=== PATIENT | female | born 1945 | race Caucasian/White ===

== ENCOUNTER → 2016-04-14 | Outpatient (CLI) | payer MEDICARE, BC | LOC: OD 14:39 | PROVIDERS: ATTEND Internal Medicine | DX: M16.9 Osteoarthritis of hip, unspecified (principal) | CPT/HCPCS: 73522 ==

== ENCOUNTER 2016-12-02 13:28 | Observation (INO) | payer MEDICARE, BC ==
[2016-12-02] MEDS ORDERED: INFLUENZA ADLT QUAD (36MOS+) 2017-18 VAC 0.5 ML SYR IM PRN (15:15)
[2016-12-02 15:50] LABS: HEMATOCRIT 43.2 % (36.0-47.0); HGB HCT DIFFERENCE 1.8; MEAN CORPUSCULAR HEMOGLOBIN 31.2 pg (27.0-33.4); MEAN CORPUSCULAR HGB CONC 34.8 g/dL (32.0-36.0); MEAN CORPUSCULAR VOLUME 90 fl (80-97); RED BLOOD COUNT 4.81 10^6/uL (3.72-5.28); WHITE BLOOD COUNT 6.1 10^3/uL (4.0-10.5)
[2016-12-02 15:54] LABS: APPEARANCE,URINE CLEAR; BILIRUBIN,URINE NEGATIVE (NEGATIVE); GLUCOSE, URINE NEGATIVE (NEGATIVE); KETONES,URINE NEGATIVE (NEGATIVE); LEUKOCYTE ESTERASE,URINE TRACE (NEGATIVE); NITRITE,URINE NEGATIVE (NEGATIVE); PROTEIN,URINE NEGATIVE (NEGATIVE); URINE SPECIFIC GRAVITY 1.003; UROBILINOGEN,URINE NEGATIVE mg/dL (<2.0)
[2016-12-02 16:08] LABS: ALANINE AMINOTRANSFERASE 35 U/L (9-52); ALBUMIN 4.6 g/dL (3.5-5.0); ALKALINE PHOSPHATASE 86 U/L (38-126); ANION GAP 13 (5-19); ASPARTATE AMINO TRANSFERASE 21 U/L (14-36); BILIRUBIN,DIRECT 0.4 mg/dL (0.0-0.4); BILIRUBIN,TOTAL 0.8 mg/dL (0.2-1.3); BLOOD UREA NITROGEN 16 mg/dL (7-20); CALCIUM 9.7 mg/dL (8.4-10.2); CARBON DIOXIDE 30 mmol/L (22-30); CHLORIDE 97 mmol/L (98-107); CREATINE KINASE 56 U/L (30-135); CREATININE RESULT 0.81 mg/dL (0.52-1.25); GLUCOSE 80 mg/dL (75-110); POTASSIUM 3.5 mmol/L (3.6-5.0); SODIUM 140.1 mmol/L (137-145); TOTAL PROTEIN 7.7 g/dL (6.3-8.2)
--- NOTE | 2016-12-02 16:17 | RADIOLOGY REPORT (SQ) ---
EXAM DESCRIPTION: CHEST SINGLE VIEW COMPLETED DATE/TIME: 12/02/2016 3:57 pm REASON FOR STUDY: chest pressure COMPARISON: September 2015 EXAM PARAMETERS: NUMBER OF VIEWS: One view. TECHNIQUE: Single frontal radiographic view of the chest acquired. RADIATION DOSE: NA LIMITATIONS: None. FINDINGS: LUNGS AND PLEURA: The previously described chronic biapical pleural thickening left greate r than right appear stable. No acute consolidations or pleural effusions are identified. No pneumot horax is seen. MEDIASTINUM AND HILAR STRUCTURES: No masses. Contour normal. HEART AND VASCULAR STRUCTURES: Heart normal in size. Normal vasculature. BONES: No acute findings. HARDWARE: None in the chest. OTHER: No other significant finding. IMPRESSION: No significant interval change. No acute findings. Other findings as noted above TECHNICAL DOCUMENTATION: JOB ID: [id number]
[2016-12-02 16:19] LABS: CREATINE KINASE MB 0.51 ng/mL (<4.55)
[2016-12-02 16:25] LABS: TROPONIN I < 0.012 ng/mL
--- NOTE | 2016-12-02 16:34 | EKG REPORT ---
SEVERITY:- NORMAL ECG - SINUS RHYTHM : Confirmed by: Elan Wynn 02-Dec-2016 16:34:08
[2016-12-02] MEDS ORDERED: ASPIRIN 81 MG TABLET, CHEWABLE PO ONE (17:15)
[2016-12-02] MEDS ORDERED: HYDROCHLOROTHIAZIDE 25 MG TABLET PO ONE (17:15)
[2016-12-02] MEDS ORDERED: DILTIAZEM HCL 120 MG CAP.SR.24H PO ONE (17:30)
--- NOTE | 2016-12-02 19:17 | XCELERA REPORT ---
[address] [address] Transthoracic Echocardiogram Report Name: ARPIT ROMERO Age: 71 yrs Gender: Female : 1945 Patient Status: Inpatient Patient Location: [address] [place] [address] Study Date: 12/02/2016 04:04 PM Height: 64 in Weight: 167 lb BSA: 1.8 m2 Procedure: A complete two-dimensional transthoracic echocardiogram was performed (2D, M-mode, spectral and color flow Doppler). The study was technically difficult with many images being suboptimal in quality. Reason For Study: chest pressure Ordering Physician: FAVIAN SILVER Performed By: Viri Glynn Interpretation Summary Left ventricular systolic function is low normal. Doppler measurements suggest pseudonormalized left ventricular relaxation, which is associated with grade II/IV or mild to moderate diastolic dysfunction There is borderline concentric left ventricular hypertrophy. The left ventricle is grossly normal size. Wall motion cannot be accurately commented on, but no definite regional wall motion abnormalities noted. The right ventricular systolic function is normal. The left atrial size is normal. The right atrium is normal in size There is a trace to mild amount of mitral regurgitation There is no mitral valve stenosis. There is a trace amount of aortic regurgitation There is no aortic valve stenosis There is a trace or physiologic amount of tricuspid regurgitation Tricuspid regurgitation jet envelope not well defined to measure RV systolic pressure accurately. The aortic root is not well visualized but is probably normal size. The inferior vena cava appeared normal and decreased > 50% with respiration (RAP 5-10 mmHg) There is no pericardial effusion. MMode/2D Measurements & Calculations RVDd: 2.6 cm LVIDd: 5.0 cm FS: 24.5 % Ao root diam: 3.0 cm IVSd: 0.56 cm LVIDs: 3.8 cm EDV(Teich): 119.6 ml LVPWd: 0.68 cm ESV(Teich): 61.8 ml Ao root area: 6.9 cm2 EF(Teich): 48.4 % LA dimension: 2.7 cm Doppler Measurements & Calculations MV E max marely: MV P1/2t max marely: Ao V2 max: LV V1 max P.5 cm/sec 73.1 cm/sec 131.1 cm/sec 5.7 mmHg MV A max marely: MV P1/2t: 55.8 msec Ao max PG: LV V1 max: 106.1 cm/sec 6.9 mmHg 119.4 cm/sec MV E/A: 0.69 MVA(P1/2t): 3.9 cm2 MV dec slope: 383.5 cm/sec2 PA V2 max: PI end-d marely: 78.0 cm/sec 100.4 cm/sec PA max P.4 mmHg Left Ventricle The left ventricle is grossly normal size. There is borderline concentric left ventricular hypertrophy. Left ventricular systolic function is low normal. Doppler measurements suggest pseudonormalized left ventricular relaxation, which is associated with grade II/IV or mild to moderate diastolic dysfunction. Wall motion cannot be accurately commented on, but no definite regional wall motion abnormalities noted. Right Ventricle The right ventricle is grossly normal size. There is normal right ventricular wall thickness. The right ventricular systolic function is normal. Atria The right atrium is normal in size. The left atrial size is normal. Interarterial septum not well visualized and not well dopplered. Cannot comment on ASD/PFO presence. Mitral Valve The mitral valve is grossly normal. There is no mitral valve stenosis. There is a trace to mild amount of mitral regurgitation. Aortic Valve The aortic valve is grossly normal. There is no aortic valve stenosis. There is a trace amount of aortic regurgitation. Tricuspid Valve The tricuspid valve is not well visualized, but is grossly normal. There is no tricuspid stenosis. There is a trace or physiologic amount of tricuspid regurgitation. Tricuspid regurgitation jet envelope not well defined to measure RV systolic pressure accurately. Pulmonic Valve The pulmonic valve is not well visualized. Great Vessels The aortic root is not well visualized but is probably normal size. The inferior vena cava appeared normal and decreased > 50% with respiration (RAP 5-10 mmHg). Effusions There is no pericardial effusion. : FAVIAN SILVER > Elan Wynn
[2016-12-03 00:11] LABS: CREATINE KINASE MB 0.43 ng/mL (<4.55)
[2016-12-03 00:21] LABS: TROPONIN I < 0.012 ng/mL
[2016-12-03] MEDS ORDERED: HYDROCHLOROTHIAZIDE 25 MG TABLET PO SCH (08:00)
[2016-12-03] MEDS ORDERED: ASPIRIN 81 MG TABLET, CHEWABLE PO SCH ×2 (08:00→10:00)
[2016-12-03] MEDS ORDERED: DILTIAZEM HCL 120 MG CAP.SR.24H PO SCH (08:00)
[2016-12-03 08:38] LABS: TROPONIN I < 0.012 ng/mL
[2016-12-03] MEDS ORDERED: POTASSIUM CHLORIDE 10 MEQ TABLET.SA PO ONE (14:00)
[2016-12-03] MEDS ORDERED: NORMAL SALINE 1000 ML 1,000 ML IV PRN (14:59)
--- NOTE | 2016-12-03 15:45 | RADIOLOGY REPORT (SQ) ---
EXAM DESCRIPTION: HIP RIGHT AP/LATERAL COMPLETED DATE/TIME: 12/03/2016 3:38 pm REASON FOR STUDY: pain if rt hip R07.89 OTHER CHEST PAIN R10.84 GENERALIZED ABDOMINAL PAIN COMPARISON: Pelvis and hip films 04/14/2016 CT abdomen pelvis 08/22/2015 NUMBER OF VIEWS: Two views. TECHNIQUE: AP pelvis and additional frog-leg view of the right hip. LIMITATIONS: None. FINDINGS: MINERALIZATION: Normal. RIGHT HIP: No fracture or dislocation. No joint space narrowing or bony spurring. No worrisome bone lesions. LEFT HIP: No fracture or dislocation. No joint space narrowing or bony spurring. No worrisome bone lesions. PUBIS AND ISCHIUM: No fracture. PELVIS: No fracture. SACRUM: No fracture or dislocation. No worrisome bone lesions. LOWER LUMBAR SPINE: No fracture or dislocation. No worrisome bone lesions. No significant disc disea se. SOFT TISSUES: Surgical clips along the right colon OTHER: No other significant finding. IMPRESSION: NEGATIVE STUDY OF THE RIGHT HIP. NO RADIOGRAPHIC EVIDENCE OF ACUTE INJURY. TECHNICAL DOCUMENTATION: JOB ID: [id number]- All Rights Reserved
--- NOTE | 2016-12-03 16:15 | RADIOLOGY REPORT (SQ) ---
EXAM DESCRIPTION: CT ABD/PELVIS WITH IV ONLY COMPLETED DATE/TIME: 12/03/2016 3:53 pm REASON FOR STUDY: abdominal pain R07.89 OTHER CHEST PAIN R10.84 GENERALIZED ABDOMINAL PAIN COMPARISON: CT angio chest 05/20/2012 CT abdomen pelvis 07/07/2013, 08/22/2015 TECHNIQUE: CT scan of the abdomen and pelvis performed using helical scanning technique with dynamic intravenous contrast injection. No oral contrast. Images reviewed with lung, soft tissue, and bone windows. Reconstructed coronal and sagittal MPR images reviewed. Delayed images for evaluation of the urinary system also acquired. All images stored on PACS. All CT scanners at this facility use dose modulation, iterative reconstruction, and/or weight based d osing when appropriate to reduce radiation dose to as low as reasonably achievable (ALARA). [facility]: Dose Right [facility]: CareDose [facility]: Dose Right [facility]: Teradose 4D [facility]: [employer] CONTRAST TYPE AND DOSE: contrast/concentration: Isovue 370.00 mg/ml; Total Contrast Delivered: 82.0 ml; Total Saline Delivered: 54.5 ml RENAL FUNCTION: Creatinine 0.81 RADIATION DOSE: Up-to-date CT equipment and radiation dose reduction techniques were employed. CTDIv ol: 10.4 - 11.7 mGy. DLP: 1090 mGy-cm.. LIMITATIONS: None. FINDINGS: LOWER CHEST: No significant findings. No nodules or infiltrates. LIVER: Normal size. No masses. No dilated ducts. Small benign hepatic cysts are present, 5 mm diameter in the right lobe liver (axial image 19), 12 mm diameter in the left lobe liver (axial image 21), 9 mm diameter inferior right lobe liver (axial image 32). SPLEEN: Normal size. No focal lesions. PANCREAS: No masses. No significant calcifications. No adjacent inflammation or peripancreatic fluid collections. Pancreatic duct not dilated. GALLBLADDER: Surgically absent ADRENAL GLANDS: No significant masses or asymmetry. RIGHT KIDNEY AND URETER: No solid masses. No significant calcifications. No hydronephrosis or hydr oureter. LEFT KIDNEY AND URETER: No solid masses. Less than 1 cm cyst left lower pole kidney No significant c alcifications. No hydronephrosis or hydroureter. AORTA AND VESSELS: No aneurysm. No dissection. Renal arteries, SMA, celiac without stenosis. RETROPERITONEUM: No retroperitoneal adenopathy, hemorrhage or masses. BOWEL AND PERITONEAL CAVITY: No masses or inflammatory changes. No free fluid or peritoneal masses. Partial resection ascending colon. APPENDIX: Surgically absent PELVIS: No mass. No free fluid. Normal bladder. Normal size female pelvic organs ABDOMINAL WALL: Umbilical hernia containing nonobstructed transverse colon BONES: Degenerative changes lower lumbar spine OTHER: No other significant finding. IMPRESSION: No acute findings TECHNICAL DOCUMENTATION: JOB ID: [id number] Quality ID # [id number]: Final reports with documentation of one or more dose reduction techniques (e.g., Au tomated exposure control, adjustment of the mA and/or kV according to patient size, use of iterative reconstruction technique) 2010 [employer]- All Rights Reserved
--- NOTE | 2016-12-03 16:46 | PDOC H&P ---
History of Present Illness Admission Date/PCP: 12/02/16 15:15 FAVIAN SILVER MD History of Present Illness: ARPIT ROMERO is a 71 year old female, she came to the office for evaluation of substernal chest pain that radiates to the neck the left arm. She had these symptoms for the past 1 week, in the office a 12-lead EKG was done, it shows sinus rhythm there is no acute ST T-segment changes. 4 years ago she was evaluated for similar symptoms, at the time she had a nuclear stress test that suggest ischemia, she subsequently had cardiac catheterization that was normal because I could not completely rule out ischemia, she was admitted from the office for further evaluation of her symptoms, a 2D echo was done, it showed preserved ejection fraction of left ventricle, there was grade 2 diastolic dysfunction of the left ventricle. 3 sets of cardiac enzymes were negative for acute OR. She also complained of abdominal pain, CT scan of the abdomen and pelvis with IV contrast was done it showed umbilical hernia containing nonobstructed transverse colon the liver was normal size but it contains small benign cyst. She also complained of pain in the right hip x-ray was done that was negative Past Medical History Cardiac Medical History: Reports: Hypertension Pulmonary Medical History: Reports: Chronic Obstructive Pulmonary Disease (COPD) Musculoskeltal Medical History: Reports: Arthritis Past Surgical History Past Surgical History: Reports: Cardiac Catheterization, Cholecystectomy Social History Smoking Status: Former Smoker Hx Recreational Drug Use: No Hx Prescription Drug Abuse: No Family History Parental Family History Reviewed: Yes Children Family History Reviewed: Yes Sibling(s) Family History Reviewed.: Yes Medication/Allergy Home Medications: Aspirin [Aspirin 81 mg Chewable Tablet] 81 mg PO QAM 12/02/16 Diltiazem HCl [Cartia Xt] 120 mg PO QAM 12/02/16 Hydrochlorothiazide [Hydrodiuril 25 mg Tablet] 25 mg PO QAM 12/02/16 Allergies/Adverse Reactions: No Known Allergies Allergy (Verified 10/09/15 09:15) Review of Systems Constitutional: ABSENT: chills, fever(s), headache(s), weight gain, weight loss Eyes: ABSENT: visual disturbances Ears: ABSENT: hearing changes Cardiovascular: PRESENT: chest pain Respiratory: ABSENT: cough, hemoptysis Gastrointestinal: PRESENT: abdominal pain Genitourinary: ABSENT: dysuria, hematuria Musculoskeletal: ABSENT: joint swelling Integumentary: ABSENT: rash, wounds Neurological: ABSENT: abnormal gait, abnormal speech, confusion, dizziness, focal weakness, syncope Psychiatric: ABSENT: anxiety, depression, homidical ideation, suicidal ideation Endocrine: ABSENT: cold intolerance, heat intolerance, menstrual abnormalities, polydipsia, polyuria Hematologic/Lymphatic: ABSENT: easy bleeding, easy bruising, lymphadenopathy Physical Exam Vital Signs: Temp Pulse Resp BP Pulse Ox 97.5 F 80 18 116/70 100 12/03/16 12:48 12/03/16 12:48 12/03/16 12:48 12/03/16 12:48 12/03/16 12:48 Intake & Output 12/02/16 12/03/16 12/04/16 06:59 06:59 06:59 Intake Total 760 358 Balance 760 358 Weight 75.75 kg General appearance: PRESENT: no acute distress, well-developed, well-nourished Head exam: PRESENT: atraumatic, normocephalic Eye exam: PRESENT: conjunctiva pink, EOMI, PERRLA Ear exam: PRESENT: normal external ear exam Mouth exam: PRESENT: moist, tongue midline Neck exam: PRESENT: full ROM Respiratory exam: PRESENT: clear to auscultation partha Cardiovascular exam: PRESENT: RRR, +S1, +S2 Pulses: PRESENT: normal dorsalis pedis pul, +2 pedal pulses bilateral Vascular exam: PRESENT: normal capillary refill GI/Abdominal exam: PRESENT: hernia, normal bowel sounds, soft Rectal exam: PRESENT: deferred Neurological exam: PRESENT: alert, awake, oriented to person, oriented to place , oriented to time, oriented to situation, CN II-XII grossly intact Psychiatric exam: PRESENT: appropriate affect, normal mood Skin exam: PRESENT: dry, intact, warm Results Laboratory Results: 12/02/16 15:45 12/02/16 15:45 12/02/16 12/02/16 12/02/16 15:45 15:45 23:23 Creatine Kinase 56 46 CK-MB (CK-2) 0.51 Troponin I < 0.012 12/02/16 12/03/16 12/03/16 23:23 07:54 07:54 Creatine Kinase 48 CK-MB (CK-2) 0.43 0.40 Troponin I < 0.012 < 0.012 Impressions: Chest X-Ray 12/02/16 15:21 IMPRESSION: No significant interval change. No acute findings. Other findings as noted above Abdomen/Pelvis CT 12/03/16 00:00 IMPRESSION: No acute findings Hip/Pelvis X-Ray 12/03/16 00:00 IMPRESSION: NEGATIVE STUDY OF THE RIGHT HIP. NO RADIOGRAPHIC EVIDENCE OF ACUTE INJURY. Assessment & Plan - Diagnosis (1) Chest pain Qualifiers: Chest pain type: unspecified Qualified Code(s): R07.9 - Chest pain, unspecified Is this a current diagnosis for this admission?: Yes Plan: Chest pain is most likely due to gastro-esophageal reflux disease, she had a normal cardiac catheterization 4 years ago, the symptoms she described is atypical it is not provoked by exertion or emotional and is not relieved by rest. The 2D echo that was done was normal echo in terms of systolic function the diastolic was abnormal. She was treated with aspirin and Prevacid (2) S/P colectomy Is this a current diagnosis for this admission?: Yes (3) S/P right colectomy Is this a current diagnosis for this admission?: Yes
--- NOTE | 2016-12-03 16:52 | PDOC DISCHARGE SUMMARY ---
General - Admit/Disc Date/PCP Admission Date/Primary Care Provider: 12/02/16 15:15 FAVIAN SILVER MD Discharge Date: 12/03/16 - Discharge Diagnosis (1) Chest pain Is this a current diagnosis for this admission?: Yes (2) S/P colectomy Is this a current diagnosis for this admission?: Yes (3) S/P right colectomy Is this a current diagnosis for this admission?: Yes - Additional Information Discharge Diet: Regular Discharge Activity: Activity As Tolerated Home Medications: Aspirin [Aspirin 81 mg Chewable Tablet] 81 mg PO QAM 12/02/16 Diltiazem HCl [Cartia Xt] 120 mg PO QAM 12/02/16 Hydrochlorothiazide [Hydrodiuril 25 mg Tablet] 25 mg PO QAM 12/02/16 Esomeprazole Magnesium [Nexium] 40 mg PO DAILY #90 capsule. 12/03/16 History of Present Illness History of Present Illness: ARPIT ROMERO is a 71 year old female, she came to the office for evaluation of substernal chest pain that radiates to the neck the left arm. She had these symptoms for the past 1 week, in the office a 12-lead EKG was done, it shows sinus rhythm there is no acute ST T-segment changes. 4 years ago she was evaluated for similar symptoms, at the time she had a nuclear stress test that suggest ischemia, she subsequently had cardiac catheterization that was normal because I could not completely rule out ischemia, she was admitted from the office for further evaluation of her symptoms, a 2D echo was done, it showed preserved ejection fraction of left ventricle, there was grade 2 diastolic dysfunction of the left ventricle. 3 sets of cardiac enzymes were negative for acute NE. She also complained of abdominal pain, CT scan of the abdomen and pelvis with IV contrast was done it showed umbilical hernia containing nonobstructed transverse colon the liver was normal size but it contains small benign cyst. She also complained of pain in the right hip x-ray was done that was negative Hospital Course Hospital Course: She was admitted for evaluation and management of chest pain, cardiac enzymes were negative, she also had abdominal pain, a CAT scan of the abdomen and pelvis was done, it was negative except for umbilical hernia. Physical Exam Vital Signs: Temp Pulse Resp BP Pulse Ox 97.5 F 80 18 116/70 100 12/03/16 12:48 12/03/16 12:48 12/03/16 12:48 12/03/16 12:48 12/03/16 12:48 Intake & Output 12/02/16 12/03/16 12/04/16 06:59 06:59 06:59 Intake Total 760 358 Balance 760 358 Weight 75.75 kg General appearance: PRESENT: no acute distress, well-developed, well-nourished Head exam: PRESENT: atraumatic, normocephalic Eye exam: PRESENT: conjunctiva pink, EOMI, PERRLA Ear exam: PRESENT: normal external ear exam Mouth exam: PRESENT: moist, tongue midline Neck exam: PRESENT: full ROM Respiratory exam: PRESENT: clear to auscultation partha Cardiovascular exam: PRESENT: RRR, +S1, +S2 Pulses: PRESENT: normal dorsalis pedis pul, +2 pedal pulses bilateral Vascular exam: PRESENT: normal capillary refill GI/Abdominal exam: PRESENT: normal bowel sounds, soft Rectal exam: PRESENT: deferred Neurological exam: PRESENT: alert, awake, oriented to person, oriented to place , oriented to time, oriented to situation, CN II-XII grossly intact Psychiatric exam: PRESENT: appropriate affect, normal mood Skin exam: PRESENT: dry, intact, warm Results Laboratory Results: 12/02/16 15:45 12/02/16 15:45 12/02/16 12/02/16 12/02/16 15:45 15:45 23:23 Creatine Kinase 56 46 CK-MB (CK-2) 0.51 Troponin I < 0.012 12/02/16 12/03/16 12/03/16 23:23 07:54 07:54 Creatine Kinase 48 CK-MB (CK-2) 0.43 0.40 Troponin I < 0.012 < 0.012 Impressions: Chest X-Ray 12/02/16 15:21 IMPRESSION: No significant interval change. No acute findings. Other findings as noted above Abdomen/Pelvis CT 12/03/16 00:00 IMPRESSION: No acute findings Hip/Pelvis X-Ray 12/03/16 00:00 IMPRESSION: NEGATIVE STUDY OF THE RIGHT HIP. NO RADIOGRAPHIC EVIDENCE OF ACUTE INJURY.
[2016-12-03] MEDS ORDERED: LANSOPRAZOLE 30 MG TAB.RAP.DR PO SCH (17:00)
[2016-12-03] MEDS ORDERED: NORMAL SALINE 500 ML IV ONE (18:30)
[2016-12-03 19:02] VITALS: BP 117/62
== END 2016-12-03 20:30 | disposition home or self-care (01) ==
LOC: UNDOADMOB 13:28 → 3N 13:28
PROVIDERS: ADMIT Internal Medicine; ATTEND Internal Medicine
PROC: 3E0234Z Introduction of Serum, Toxoid and Vaccine into Muscle, Percutaneous Approach (ICD-10-PCS; principal; 2016-12-03)
DX: R07.2 Precordial pain (principal); R10.9 Unspecified abdominal pain; M25.551 Pain in right hip; K42.9 Umbilical hernia without obstruction or gangrene; I10 Essential (primary) hypertension; I51.89 Other ill-defined heart diseases; K76.89 Other specified diseases of liver; Z90.49 Acquired absence of other specified parts of digestive tract; Z79.82 Long term (current) use of aspirin; Z79.899 Other long term (current) drug therapy; Z87.891 Personal history of nicotine dependence; Z23 Encounter for immunization
CPT/HCPCS: 36415 ×2; 82553 ×2; 82550 ×2; 85027; 80076; 80048; 81001; 84484 ×2; 85379; 93306; 71010; 73502; 74177; 90686; 93005; 93010; A9270 ×3; J7040

== ENCOUNTER → 2016-12-22 | Outpatient (CLI) | payer MEDICARE, BC ==
--- NOTE | 2016-12-22 17:59 | RADIOLOGY REPORT (SQ) ---
EXAM DESCRIPTION: LUMBAR SPINE 2 VIEWS COMPLETED DATE/TIME: 12/22/2016 5:41 pm REASON FOR STUDY: RADICULOPATHY, LUMBAR REGION M54.16 RADICULOPATHY, LUMBAR REGION M25.511 PAIN IN RIGHT SHOULDER M25.512 PAIN IN LEFT SHOULDER COMPARISON: None. NUMBER OF VIEWS: Two views. TECHNIQUE: AP and lateral radiographic images acquired of the lumbar spine. LIMITATIONS: None. FINDINGS: MINERALIZATION: Normal. SEGMENTATION: Normal. No transitional anatomy. ALIGNMENT: Minimal scoliosis. Very mild grade 1 anterolisthesis of L4 on L5. VERTEBRAE: Maintained height. No fracture or worrisome bone lesion. DISCS: There is mild narrowing of the L4-5 disc space. POSTERIOR ELEMENTS: Hypertrophic facet changes from L3-S1. HARDWARE: None in the spine. PARASPINAL SOFT TISSUES: Normal. PELVIS: Intact as visualized. No fractures or worrisome bone lesions. SI joints intact. OTHER: No other significant finding. IMPRESSION: Minimal scoliosis. Grade 1 anterolisthesis of L4 on L5. Mild L4-5 disc space narrowing . TECHNICAL DOCUMENTATION: JOB ID: [id number] [employer]- All Rights Reserved
--- NOTE | 2016-12-22 18:05 | RADIOLOGY REPORT (SQ) ---
EXAM DESCRIPTION: SHOULDER LEFT 2 OR MORE VIEWS COMPLETED DATE/TIME: 12/22/2016 5:41 pm REASON FOR STUDY: PAIN IN LEFT SHOULDER M54.16 RADICULOPATHY, LUMBAR REGION M25.511 PAIN IN RIGHT SHOULDER M25.512 PAIN IN LEFT SHOULDER COMPARISON: None. NUMBER OF VIEWS: Three views. TECHNIQUE: Internal rotation, external rotation, and Y view images acquired of the left shoulder. LIMITATIONS: None. FINDINGS: MINERALIZATION: Normal. BONES: No acute fracture or dislocation. No worrisome bone lesions. JOINTS: No dislocation. VISUALIZED LUNGS AND RIBS: Surgical changes the left apex. Dense pleural calcifications and pleural capping. SOFT TISSUES: No radiopaque foreign body. OTHER: No other significant finding. IMPRESSION: NEGATIVE STUDY OF THE LEFT SHOULDER. NO RADIOGRAPHIC EVIDENCE OF ACUTE INJURY. TECHNICAL DOCUMENTATION: JOB ID: [id number] [employer]- All Rights Reserved
--- NOTE | 2016-12-22 18:06 | RADIOLOGY REPORT (SQ) ---
EXAM DESCRIPTION: SHOULDER RIGHT 2 OR MORE VIEWS COMPLETED DATE/TIME: 12/22/2016 5:41 pm REASON FOR STUDY: PAIN IN RIGHT SHOULDER M54.16 RADICULOPATHY, LUMBAR REGION M25.511 PAIN IN RIGHT SHOULDER M25.512 PAIN IN LEFT SHOULDER COMPARISON: None. NUMBER OF VIEWS: Three views. TECHNIQUE: Internal rotation, external rotation, and Y view images acquired of the right shoulder. LIMITATIONS: None. FINDINGS: MINERALIZATION: Normal. BONES: No acute fracture or dislocation. No worrisome bone lesions. JOINTS: No dislocation. VISUALIZED LUNGS AND RIBS: No pneumothorax. No rib fracture. SOFT TISSUES: No radiopaque foreign body. OTHER: No other significant finding. IMPRESSION: NEGATIVE STUDY OF THE RIGHT SHOULDER. NO RADIOGRAPHIC EVIDENCE OF ACUTE INJURY. TECHNICAL DOCUMENTATION: JOB ID: [id number] [employer]- All Rights Reserved
== END ==
LOC: OD 15:23
PROVIDERS: ATTEND Internal Medicine
DX: M54.16 Radiculopathy, lumbar region (principal); M25.511 Pain in right shoulder; M25.512 Pain in left shoulder
CPT/HCPCS: 72100

== ENCOUNTER 2017-08-19 06:56 | Day surgery (SDC) | payer MEDICARE, BC ==
[2017-08-11 10:08] LABS: HEMOGLOBIN 14.9 g/dL (12.0-15.5); MEAN CORPUSCULAR HEMOGLOBIN 31.1 pg (27.0-33.4); MEAN CORPUSCULAR HGB CONC 34.6 g/dL (32.0-36.0); MEAN CORPUSCULAR VOLUME 90 fl (80-97); PLATELET COUNT 267 10^3/uL (150-450); RED BLOOD COUNT 4.78 10^6/uL (3.72-5.28); RED CELL DISTRIBUTION WIDTH 13.2 % (11.5-14.0); WHITE BLOOD COUNT 5.8 10^3/uL (4.0-10.5)
[2017-08-11 10:24] LABS: ANION GAP 13 (5-19); BLOOD UREA NITROGEN 12 mg/dL (7-20); CALCIUM 9.8 mg/dL (8.4-10.2); CARBON DIOXIDE 29 mmol/L (22-30); CHLORIDE 100 mmol/L (98-107); GLUCOSE 93 mg/dL (75-110); SODIUM 142.4 mmol/L (137-145)
--- NOTE | 2017-08-11 13:28 | EKG REPORT ---
SEVERITY:- NORMAL ECG - SINUS RHYTHM : Confirmed by: Thiago Noe MD 11-Aug-2017 13:27:17
[~2017-08-19 06:56] MED LIST: ACETAMINOPHEN 325 MG TABLET PO PRN; CEFAZOLIN 1 GM/D5W RTU 1 GM/50 ML RTUPB IV PRN; LACTATED RINGERS 1000 ML IV PRN; LIDOCAINE 0.5% INJ-PF (5 MG/ML) 50 ML SDV SUBCUT PRN
[2017-08-19] MEDS ORDERED: ONDANSETRON 4 MG TAB.RAPDIS ONE (07:20)
[2017-08-19] MEDS ORDERED: BUPIVACAINE HCL 0.25 % INJ/PF (2.5 MG/1 ML) 30 ML VIAL ONE (07:25)
[2017-08-19] MEDS ORDERED: MIDAZOLAM 2 MG/2 ML INJ ONE ×2 (08:01→08:55)
[2017-08-19] MEDS ORDERED: FENTANYL CITRATE INJ/PF 100 MCG/2 ML AMPUL ONE ×2 (08:55→10:08)
[2017-08-19] MEDS ORDERED: EPHEDRINE SULFATE INJ 50 MG/1 ML AMPULE ONE (08:55)
[2017-08-19] MEDS ORDERED: ACETAMINOPHEN 1,000 MG/100 ML RTUPB IV ONE (08:56)
[2017-08-19] MEDS ORDERED: PROPOFOL INJ 200 MG/20 ML VIAL IV ONE (08:56)
[2017-08-19] MEDS ORDERED: FENTANYL CITRATE INJ/PF 100 MCG/2 ML AMPUL IV PRN ×3 (09:24)
[2017-08-19] MEDS ORDERED: DIPHENHYDRAMINE HCL 50 MG/ML VIAL IV PRN (09:24)
[2017-08-19] MEDS ORDERED: OXYCODONE-ACETAMINOPHEN 5-325 MG TABLET PO PRN ×3 (09:24→11:37)
[2017-08-19] MEDS ORDERED: MEPERIDINE HCL/PF INJ 25 MG/1 ML DISP.SYRIN IV PRN (09:24)
[2017-08-19] MEDS ORDERED: MORPHINE SULFATE 10 MG/ML INJ IV PRN ×2 (09:24→11:37)
[2017-08-19] MEDS ORDERED: PROMETHAZINE HCL INJ 25 MG/1 ML VIAL IV PRN ×2 (09:24)
[2017-08-19] MEDS ORDERED: BUPIVACAINE INJ/PF LIPOSOME/PF 266 MG/20 ML SDV ONE (11:14)
[2017-08-19] MEDS ORDERED: DEXTROSE 5%-LACTATED RINGERS 1,000 ML IV PRN (11:37)
--- NOTE | 2017-08-19 11:37 | Operative Report ---
Operative Report DATE OF SURGERY: 08/19/17 PREOPERATIVE DIAGNOSIS: Acquired abdominal wall hernia with prolapsed transverse colon POSTOPERATIVE DIAGNOSIS: Same with extensive intra-abdominal adhesions OPERATION: 1. Laparoscopic lysis of adhesions. 2. Laparoscopic ventral wall herniorrhaphy with primary closure using 0 Ethibond suture, and ventralight ST 15 cm mesh intraperitoneal enforcement. 3. Use of intraoperative ultrasonography SURGEON: TRU MCKENZIE 1ST ARC FURNACE OPERATOR: SANJUANA VARGAS ANESTHESIA: GA TISSUE REMOVED OR ALTERED: None COMPLICATIONS: None ESTIMATED BLOOD LOSS: 75 cc INTRAOPERATIVE FINDINGS: See below PROCEDURE: The patient was taken to the preop holding area the main operating room where general anesthesia was induced. Arms were abducted in the abdominal wall prepped and draped in sterile fashion with Betadine. Instrumentation was set up for laparoscopic ventral hernia repair. Surgical plan and surgical timeout were conducted. Examination the anterior abdominal wall revealed a 8 cm incision above and below the umbilicus, with palpable mass consistent with prolapsed tissue within the hernia sac. Previous small 5 mm scars about the anterior abdominal wall consistent with previous port site placement from the patient's laparoscopic hemicolectomy 2 years ago. We needs to times several of these scars. A suitable site for insertion of the Veress needle was then chosen in the left upper quadrant. A zenon was made in the skin with 11 blade, Veress needle inserted the peritoneal cavity pneumoperitoneum was established. The Veress needle was removed and a 5 mm ports inserted. A flexible 5 mm viewing scope was inserted and the findings are significant for dense intra-abdominal adhesions. We gently insinuated the scope from the left upper quadrant towards the superior midline epigastric position and inserted our second 5 mm port. Once this was inserted 2 additional 5 mm ports were inserted in the right upper quadrant and the right mid quadrant. We now had a total of 4 operating ports. We now commenced lysis of adhesions using the LigaSure laparoscopic energy device. This proceeded uneventfully in a methodical fashion for approximately 35 minutes. Adhesions were between the omentum, the anterior abdominal wall, the falciform ligament. In addition the midportion of the transverse colon was stuck up to the inferior rim of the midline hernia defect. Again excellent visualization, and careful use of energy device deployed to release the colon from the fascial edge of the hernia. We took multiple pictures of the hernia. The dominant hernia was measured in it approximately 6 cm by using a intracorporeally placed ruler. In addition just cephalad major defect were several smaller defects all less than a centimeter. Fascial defects identified. Of note the patient has a long history of smoking although she reportedly stopped. Nonetheless it was apparent from our observation in handling of her tissue throughout this case that the quality of her fascia was poor. Several photos the intra-abdominal wall were taken. We inspected the transverse colon, and falciform ligament which was taken back by several centimeters, and there was no evidence of bleeding. Given the intra-abdominal findings of a 6 cm defect oriented transversely, we elected to close the defect primarily using transabdominally placed 0 Ethibond sutures in a xojend-cy-yjjyo fashion. This was affected using the disposable suture passer. We decompressed the pneumoperitoneum, pulled up on the Ethibond sutures and secured knots in a sequential fashion thereby approximating this fascial defect. Naturally there was some element of tension. We did not attempt a closed the 2 smaller cephalic fascial defects. Point we noticed a subcutaneous masslike effect of the right of the umbilicus. At first we suspected this may have been non-reduced incarcerated omentum from the hernia, but this did not prove to be the case as we press this area and it did not decompress through the repair site. We brought onto the field focused ultrasonography with a sterile sleeve and scanned this area. The tissue appeared to be consistent with tissue so we clinically concluded the mass was a abdominal wall lipoma. We proceeded with mesh reinforcement of the primary closure. Brought onto the field a [address] by [employer] polypropylene mesh with Seprafilm impregnation. The mesh was affixed with sutures of the 12, 3, 6, 9 o' clock position with 0 PDS suture, oriented with markings, moistened and rolled and brought to the anterior abdominal wall to the right lower quadrant port site. The mesh was unfolded and brought to the anterior abdominal wall using the disposable suture passer again at the previously mentioned positions. Once this was achieved we came back around in a circumferential fashion and applied the Covidien absorb attacks, approximately 20 deployed. This affixed the mesh to the anterior abdominal wall in a most satisfactory fashion. Photos were taken. At this time there was bleeding from the right lower quadrant port site which was arterial in nature. This was addressed by placing a single interrupted #1 PDS suture thereby abating the bleeding and closing the fascial defect. At this point felt the operation was complete. Sponge and needle counts were correct. Concluding photos were taken. There was no mechanical bleeding either intracorporeally or extracorporeally. All ports removed under direct visualization, pneumoperitoneum evacuated, wounds closed with a 3-0 Vicryl benzoin and Steri-Strips. Approximately 20 cc of Exparel was deployed and subcutaneous tissue at the polyp sites of the mesh. Patient tolerated procedure well, extubated and taken to recovery in stable condition. The physician child care center assistant director, Ms. Rivera, provided assistance during this case by: Assisting and port insertion, retracting tissue, instillation of local anesthesia and closure of skin incisions.
[2017-08-19] MEDS ORDERED: PROMETHAZINE HCL INJ 25 MG/1 ML VIAL ONE (11:52)
[2017-08-19] MEDS ORDERED: ACETAMINOPHEN INJ/PF 1000 MG/100 ML SDV IV SCH (12:00)
[2017-08-19] MEDS ORDERED: SUCCINYLCHOLINE CHLORIDE INJ 200 MG/10 ML VIAL ONE (12:16)
[2017-08-19] MEDS ORDERED: ROCURONIUM BROMIDE INJ 50 MG/5 ML VIAL IV ONE (12:16)
[2017-08-19] MEDS ORDERED: DEXAMETHASONE SOD PHOSPHATE INJ 4 MG/1 ML VIAL ONE (12:16)
[2017-08-19] MEDS ORDERED: KETOROLAC TROMETHAMINE 60 MG/2 ML SDV ONE (12:16)
[2017-08-19] MEDS: ACETAMINOPHEN 1,000 MG/100 ML RTUPB IV SCH ×2 (15:38→21:27)
[2017-08-20] MEDS: ACETAMINOPHEN 1,000 MG/100 ML RTUPB IV SCH (03:21)
[2017-08-20 08:44] VITALS: BP 119/63
--- NOTE | 2017-08-20 09:30 | DISCHARGE SUMMARY E ---
Discharge Summary NAME: ARPIT ROMERO : 1945 AGE: 72Y ADMITTED: 08/19/2017 DISCHARGED: 08/20/2017 REASON FOR ADMISSION: Abdominal wall hernia repair. SUMMARY OF HOSPITALIZATION: The patient is a 72-year-old white female with a history of right hemicolectomy, now with symptomatic abdominal wall hernia with colonic prolapse into the hernia sac. She is brought to Ambulatory Surgery for definitive repair. On the morning of 08/19/17, the patient underwent laparoscopic repair of abdominal wall hernia with mesh reinforcement. She tolerated the procedure well. There were no postoperative complications. She was admitted overnight for observation. She did well, had adequate pain control, voided and was ready for discharge home the following day. FINAL DIAGNOSIS: ABDOMINAL WALL HERNIA STATUS POST LAPAROSCOPIC REPAIR, DR. MCKENZIE. DISPOSITION: The patient will be discharged home in the care of the family. Followup with Dr. Mckenzie at the [facility] in 1-2 weeks. Resume preoperative medications, diet and activity. DICTATING PHYSICIAN: TRU MCKENZIE M.D. [id number] PHY#: [id number] ID: [id number] JOB#: [id number] ACCT: [id number] cc:TRU MCKENZIE M.D. >
== END 2017-08-20 09:10 | disposition home or self-care (01) ==
LOC: OROUT 06:56 → 2N 13:03 → OROUT 08-20 09:10
PROVIDERS: ATTEND Surgery
PROC: 0WUF4JZ Supplement Abdominal Wall with Synthetic Substitute, Percutaneous Endoscopic Approach (ICD-10-PCS; principal; 2017-08-19 09:00)
DX: K43.2 Incisional hernia without obstruction or gangrene (principal); I10 Essential (primary) hypertension; K21.9 Gastro-esophageal reflux disease without esophagitis; J44.9 Chronic obstructive pulmonary disease, unspecified
CPT/HCPCS: 93005; 36415 ×2; 84132; 85027; 80048; 93010; 49654; C1713; J2250; J0690; J3490; J1100; J1885; A9270 ×2; J3010; J2550; J0330; J7120; J2704; J0131 ×2; C9290; 750; S0119

== ENCOUNTER 2017-09-02 10:44 | Emergency (ER) | payer MEDICARE, BC ==
[2017-09-02] MEDS ORDERED: ONDANSETRON 4 MG TAB.RAPDIS PO ONE (11:36)
[2017-09-02] MEDS ORDERED: MORPHINE SULFATE 10 MG/ML INJ IV ONE (11:36)
[2017-09-02] MEDS ORDERED: NORMAL SALINE 1000 ML 1,000 ML IV ONE (11:36)
[2017-09-02] MEDS ORDERED: METOCLOPRAMIDE HCL ORAL SOLN 10 MG/10 ML UDCUP PO ONE (11:36)
--- NOTE | 2017-09-02 11:42 | ER Document Report ---
ED Medical Screen (RME) - General Chief Complaint: Vomiting/Diarrhea Stated Complaint: VOMITING,DIARRHEA Time Seen by Provider: 09/02/17 11:36 Notes: Chief complaint: abdominal pain: History of complain:( obtained from----patient) 42 years old female post surgery for umbilical hernia, 2 weeks ago. Presents today with since this morning nausea vomited many times and loose stool 2. And questionable periumbilical pain and discomfort. Feeling general malaise. No fever chills or other constitutional symptoms. Onset: Since this morning gradual Duration: Since this morning Severity: Moderate to severe Quality: Unknown Context: Post surgery Exacerbating factor and relieving factors: Change of position PHYSICAL EXAMINATION: GENERAL: appeared to be weak and tired and in discomfo Dictation was performed using [employer] voice recognition software TRAVEL OUTSIDE OF THE [place] IN LAST 30 DAYS: No - Related Data Allergies/Adverse Reactions: No Known Allergies Allergy (Verified 09/02/17 10:55) Past Medical History - Social History Chew tobacco use (# tins/day): No Frequency of alcohol use: None Drug Abuse: None - Past Medical History Cardiac Medical History: Reports: Hx Hypertension Denies: Hx Congestive Heart Failure, Hx Coronary Artery Disease - cardiac cath 2012, Hx Heart Attack Pulmonary Medical History: Reports: Hx COPD - left lower lobectomy Denies: Hx Asthma, Hx Bronchitis, Hx Pneumonia, Hx Tuberculosis Neurological Medical History: Denies: Hx Cerebrovascular Accident, Hx Seizures Renal/ Medical History: Denies: Hx End Stage Renal Disease, Hx Kidney Stones, Hx Peritoneal Dialysis GI Medical History: Denies: Hx Cirrhosis, Hx Gastroesophageal Reflux Disease, Hx Irritable Bowel, Hx Liver Failure, Hx Pancreatitis, Hx Ulcer Musculoskeltal Medical History: Reports Hx Arthritis, Denies Hx Multiple Sclerosis, Denies Hx Muscular Dystrophy Psychiatric Medical History: Denies: Hx Bipolar Disorder, Hx Depression, Hx Schizophrenia Traumatic Medical History: Denies: Hx Fractures Past Surgical History: Reports: Hx Cardiac Catheterization, Hx Cholecystectomy. Denies: Hx Bowel Surgery - Immunizations Hx Diphtheria, Pertussis, Tetanus Vaccination: Yes History of Influenza Vaccine for 11/2016 - 04/2017 Season: Yes Influenza Administration Date for 11/2016 - 04/2017 Season: 11/09/16 Physical Exam - Vital signs Vitals: Temp Pulse Resp BP Pulse Ox 97.9 F 81 16 120/61 96 09/02/17 10:59 09/02/17 10:59 09/02/17 10:59 09/02/17 10:59 09/02/17 10:59 Course - Vital Signs Vital signs: Temp Pulse Resp BP Pulse Ox 97.9 F 81 18 120/61 96 09/02/17 10:59 09/02/17 10:59 09/02/17 11:30 09/02/17 10:59 09/02/17 10:59 Doctor's Discharge - Discharge Referrals: FAVIAN SILVER MD [Primary Care Provider] - Follow up as needed
[2017-09-02] MEDS ORDERED: PROCHLORPERAZINE EDISYLATE INJ 10 MG/2 ML VIAL IV ONE (12:44)
[2017-09-02 12:51] LABS: ABSOLUTE LYMPHOCYTES (AUTO) 0.7 10^3/uL (0.5-4.7); ABSOLUTE MONOCYTES (AUTO) 0.3 10^3/uL (0.1-1.4); ABSOLUTE NEUT (AUTO) 11.3 10^3/uL (1.7-8.2); BASOPHILS % (AUTO) 0.1 % (0-2); HEMATOCRIT 39.6 % (36.0-47.0); HEMOGLOBIN 13.7 g/dL (12.0-15.5); LYMPHOCYTES % (AUTO) 5.4 % (13-45); MEAN CORPUSCULAR HEMOGLOBIN 31.1 pg (27.0-33.4); MEAN CORPUSCULAR HGB CONC 34.7 g/dL (32.0-36.0); MEAN CORPUSCULAR VOLUME 90 fl (80-97); MONOCYTES % (AUTO) 2.1 % (3-13); PLATELET COUNT 321 10^3/uL (150-450); RED BLOOD COUNT 4.41 10^6/uL (3.72-5.28); RED CELL DISTRIBUTION WIDTH 13.3 % (11.5-14.0); SEGMENTED NEUTROPHILS % (AUTO) 92.4 % (42-78); TOTAL CELLS COUNTED % (AUTO) 100 %; WHITE BLOOD COUNT 12.2 10^3/uL (4.0-10.5)
--- NOTE | 2017-09-02 12:58 | ER Document Report ---
ED GI/ - General Chief Complaint: Vomiting/Diarrhea Stated Complaint: VOMITING,DIARRHEA Time Seen by Provider: 09/02/17 11:36 Notes: This is a 72-year-old female patient to the emergency department 2 weeks postop from hernia repair with Dr. Gasca. Laparoscopic hernia repair. Patient has been doing fine. Eating and drinking normally. Pain is been nonexistent according to the patient. This morning woke up with nausea vomiting, fullness in the abdomen. Also having diarrhea. Cannot seem to keep anything down. Has not had any of her her occasions today. Patient very anxious. Denies any fever , chills, sweats. Denies any leg pain. Denies any burning with urination. Does describe a funny sensation in the right flank area. TRAVEL OUTSIDE OF THE [place] IN LAST 30 DAYS: No - HPI Patient complains to provider of: Diarrhea, Vomiting Onset: This morning Timing/Duration: Sudden Quality of pain: No pain Severity at maximum: Severe Severity in ED: Severe Pain Level: 0 - Related Data Allergies/Adverse Reactions: No Known Allergies Allergy (Verified 09/02/17 10:55) Past Medical History - General Information source: Patient - Social History Smoking Status: Never Smoker Chew tobacco use (# tins/day): No Frequency of alcohol use: None Drug Abuse: None Lives with: Family Family History: Reviewed & Not Pertinent Patient has suicidal ideation: No Patient has homicidal ideation: No - Past Medical History Cardiac Medical History: Reports: Hx Hypertension Denies: Hx Congestive Heart Failure, Hx Coronary Artery Disease - cardiac cath 2012, Hx Heart Attack Pulmonary Medical History: Reports: Hx COPD - left lower lobectomy Denies: Hx Asthma, Hx Bronchitis, Hx Pneumonia, Hx Tuberculosis Neurological Medical History: Denies: Hx Cerebrovascular Accident, Hx Seizures Renal/ Medical History: Denies: Hx End Stage Renal Disease, Hx Kidney Stones, Hx Peritoneal Dialysis GI Medical History: Denies: Hx Cirrhosis, Hx Gastroesophageal Reflux Disease, Hx Irritable Bowel, Hx Liver Failure, Hx Pancreatitis, Hx Ulcer Musculoskeletal Medical History: Reports Hx Arthritis, Denies Hx Multiple Sclerosis, Denies Hx Muscular Dystrophy Psychiatric Medical History: Denies: Hx Bipolar Disorder, Hx Depression, Hx Schizophrenia Traumatic Medical History: Denies: Hx Fractures Past Surgical History: Reports: Hx Cardiac Catheterization, Hx Cholecystectomy. Denies: Hx Bowel Surgery - Immunizations Hx Diphtheria, Pertussis, Tetanus Vaccination: Yes Hx Pneumococcal Vaccination: 11/09/14 Review of Systems - Review of Systems Constitutional: denies: Fever, Malaise, Weakness EENT: denies: Blurred vision, Difficulty swallowing, Mouth pain Cardiovascular: denies: Chest pain, Palpitations, Heart racing Respiratory: denies: Cough, Hurts to breathe, Short of breath, Wheezing Gastrointestinal: Diarrhea, Nausea, Vomiting. denies: Abdominal pain Genitourinary: Other - Denies flank pain but has a funny feeling in the right flank. denies: Burning, Dysuria, Discharge, Flank pain Musculoskeletal: denies: Back pain, Joint pain, Muscle pain Skin: denies: Dryness, Lesions, Lumps, Rash Hematologic/Lymphatic: denies: Blood clots, Easy bleeding, Easy bruising Neurological/Psychological: denies: Confusion, Weakness, Numbness Physical Exam - Vital signs Vitals: Temp Pulse Resp BP Pulse Ox 97.9 F 81 16 120/61 96 09/02/17 10:59 09/02/17 10:59 09/02/17 10:59 09/02/17 10:59 09/02/17 10:59 Interpretation: Normal - General General appearance: Alert In distress: Moderate Notes: Uncomfortable appearing. Actively vomiting. - HEENT Head: Normocephalic, Atraumatic Eyes: Normal Pupils: PERRL - Respiratory Respiratory status: No respiratory distress Chest status: Nontender Breath sounds: Normal Chest palpation: Normal - Cardiovascular Rhythm: Regular Heart sounds: Normal auscultation Murmur: No - Abdominal Inspection: Other - Patient has postoperative laparoscopic incision sites which are healing well. No obvious signs of infection. Distension: No distension Bowel sounds: Hypoactive Tenderness: Nontender. No: Guarding, Rebound Organomegaly: No organomegaly - Back Back: Normal, Nontender - Extremities General upper extremity: Normal inspection, Nontender, Normal color, Normal ROM , Normal temperature General lower extremity: Normal inspection, Nontender, Normal color, Normal ROM , Normal temperature. No: Edema, Caty's sign - Neurological Neuro grossly intact: Yes Cognition: Normal Orientation: AAOx4 [place] Coma Scale Eye Opening: Spontaneous [place] Coma Scale Verbal: Oriented [place] Coma Scale Motor: Obeys Commands [place] Coma Scale Total: 15 Speech: Normal Motor strength normal: LUE, RUE, LLE, RLE Sensory: Normal - Psychological Associated symptoms: Normal affect, Normal mood - Skin Skin Temperature: Warm Skin Moisture: Dry Skin Color: Normal Course - Re-evaluation Re-evalutation: 09/02/17 12:57 At this time the obvious concern being 2 weeks postop that she may have a bowel obstruction. Will order labs, IV fluids, Compazine, CT scan and reassess. 09/02/17 14:13 CT scan does not show bowel obstruction. Incidental findings which do not appear clinically relevant at this time. Patient's troponin was 0.02 which is not 0.01 and she has had multiple troponins in the past. Will repeat a second troponin in 2 hours. Consulted with patient's surgeon. He is reviewing the CT scan but does not feel there is anything major at this time to do. Nausea seems much better. Giving IV fluids and will reassess. 09/02/17 14:14 Abdomen/Pelvis CT 09/02/17 11:36 IMPRESSION: Status post herniorrhaphy noting a 1.8 x 2.0 x 1.0 cm fluid collection within the extra abdominal soft tissues. This is nonspecific and may represent a small seroma ; however, a developing abscess is not excluded. No evidence of clinically suspected bowel obstruction. Other chronic and incidental findings as detailed above. Laboratory 09/02/17 09/02/17 09/02/17 12:00 12:00 12:00 WBC 12.2 H RBC 4.41 Hgb 13.7 Hct 39.6 MCV 90 MCH 31.1 MCHC 34.7 RDW 13.3 Plt Count 321 Seg Neutrophils % 92.4 H Lymphocytes % 5.4 L Monocytes % 2.1 L Eosinophils % 0.0 Basophils % 0.1 Absolute Neutrophils 11.3 H Absolute Lymphocytes 0.7 Absolute Monocytes 0.3 Absolute Eosinophils 0.0 Absolute Basophils 0.0 Sodium 142.1 Potassium 3.4 L Chloride 98 Carbon Dioxide 29 Anion Gap 15 BUN 18 Creatinine 0.75 Est GFR ( Amer) > 60 Est GFR (Non-Af Amer) > 60 Glucose 137 H Calcium 9.6 Total Bilirubin 0.8 Direct Bilirubin 0.2 Neonat Total Bilirubin Not Reportable Neonat Direct Bilirubin Not Reportable Neonat Indirect Bili Not Reportable AST 22 ALT 27 Alkaline Phosphatase 83 CK-MB (CK-2) 0.62 Troponin I 0.029 Total Protein 7.9 Albumin 4.5 Lipase 64.3 09/02/17 16:06 No evidence of significant infection at this time. Repeat troponin was performed which has not elevated but actually has come down to 0.027. General surgeon is evaluating patient at this time. Do not find anything acute. Patient is tolerating p.o. at this time. Feeling better. Likely be able to DC shortly. No significant shortness of breath or chest pain either. No concern at this time for pulmonary embolism in my opinion - Vital Signs Vital signs: Temp Pulse Resp BP Pulse Ox 98.2 F 88 16 134/72 H 92 09/02/17 15:13 09/02/17 15:13 09/02/17 15:13 09/02/17 15:13 09/02/17 15:13 - Laboratory Result Diagrams: 09/02/17 12:00 09/02/17 12:00 Laboratory results interpreted by me: 09/02/17 09/02/17 09/02/17 12:00 12:00 14:34 WBC 12.2 H Seg Neutrophils % 92.4 H Lymphocytes % 5.4 L Monocytes % 2.1 L Absolute Neutrophils 11.3 H Potassium 3.4 L Glucose 137 H Urine Blood SMALL H Ur Leukocyte Esterase TRACE H - EKG Interpretation by Me EKG shows normal: Sinus rhythm, [place], Intervals, QRS Complexes, ST-T Waves When compared to previous EKG there are: No significant change Discharge - Discharge Clinical Impression: Acute gastroenteritis Condition: Good Disposition: HOME, SELF-CARE Instructions: Gastroenteritis (adult) ([facility]), Antinausea Medication (OM), Clear Liquid Diet (OM) Additional Instructions: In the event that you develop chest pain, shortness of breath or worsening symptoms please return for repeat evaluation. Prescriptions: Ondansetron [Zofran Odt 4 mg Tablet] 1 - 2 tab PO Q4H PRN #15 tab.rapdis PRN Reason: For Nausea/Vomiting Referrals: FAVIAN SILVER MD [Primary Care Provider] - Follow up as needed TRU GASCA MD [ACTIVE STAFF] - Follow up as needed
[2017-09-02 13:03] LABS: ALANINE AMINOTRANSFERASE 27 U/L (9-52); ALBUMIN 4.5 g/dL (3.5-5.0); ALKALINE PHOSPHATASE 83 U/L (38-126); ANION GAP 15 (5-19); ASPARTATE AMINO TRANSFERASE 22 U/L (14-36); BILIRUBIN,DIRECT 0.2 mg/dL (0.0-0.4); BILIRUBIN,TOTAL 0.8 mg/dL (0.2-1.3); BLOOD UREA NITROGEN 18 mg/dL (7-20); CALCIUM 9.6 mg/dL (8.4-10.2); CARBON DIOXIDE 29 mmol/L (22-30); CHLORIDE 98 mmol/L (98-107); GLUCOSE 137 mg/dL (75-110); LIPASE 64.3 U/L (23-300); POTASSIUM 3.4 mmol/L (3.6-5.0); SODIUM 142.1 mmol/L (137-145); TOTAL PROTEIN 7.9 g/dL (6.3-8.2)
[2017-09-02 13:22] LABS: CREATINE KINASE MB 0.62 ng/mL (<4.55); TROPONIN I 0.029 ng/mL
--- NOTE | 2017-09-02 14:00 | RADIOLOGY REPORT (SQ) ---
EXAM DESCRIPTION: CT ABD/PELVIS WITH IV ONLY COMPLETED DATE/TIME: 09/02/2017 1:43 pm REASON FOR STUDY: Rule out bowel obstruction postsurgery COMPARISON: 12/03/2016 TECHNIQUE: CT scan of the abdomen and pelvis performed using helical scanning technique with dynamic intravenous contrast injection. No oral contrast. Images reviewed with lung, soft tissue, and bone windows. Reconstructed coronal and sagittal MPR images reviewed. Delayed images for evaluation of the urinary system also acquired. All images stored on PACS. All CT scanners at this facility use dose modulation, iterative reconstruction, and/or weight based d osing when appropriate to reduce radiation dose to as low as reasonably achievable (ALARA). [facility]: Dose Right [facility]: CareDose [facility]: Dose Right [facility]: Teradose 4D [facility]: [employer] CONTRAST TYPE AND DOSE: contrast/concentration: Isovue 370.00 mg/ml; Total Contrast Delivered: 84.0 ml; Total Saline Delivered: 38.0 ml RENAL FUNCTION: BUN 18; creatinine 0.75 RADIATION DOSE: CT Rad equipment meets quality standard of care and radiation dose reduction techniq ues were employed. CTDIvol: 10.1 - 14.1 mGy. DLP: 1219 mGy-cm.. LIMITATIONS: None. FINDINGS: LOWER CHEST: No significant findings. No nodules or infiltrates. LIVER: Normal size. No masses. No dilated ducts. Stable appearance of scattered hepatic. SPLEEN: Normal size. No focal lesions. PANCREAS: No masses. No significant calcifications. No adjacent inflammation or peripancreatic fluid collections. Pancreatic duct not dilated. GALLBLADDER: Surgically absent. ADRENAL GLANDS: No significant masses or asymmetry. RIGHT KIDNEY AND URETER: No solid masses. No significant calcifications. No hydronephrosis or hyd roureter. LEFT KIDNEY AND URETER: No solid masses. No significant calcifications. No hydronephrosis or hydr oureter. AORTA AND VESSELS: No aneurysm. No dissection. Renal arteries, SMA, celiac without stenosis. RETROPERITONEUM: No retroperitoneal adenopathy, hemorrhage or masses. BOWEL AND PERITONEAL CAVITY: Status post right sided partial colectomy. No masses or inflammatory ch anges. No free fluid or peritoneal masses. APPENDIX: Surgically absent. PELVIS: No mass. No free fluid. Normal bladder. ABDOMINAL WALL: Postsurgical changes of the ventral midline abdomen noting subcutaneous fat stranding as well as a 1.8 x 2.0 x 1.0 cm fluid collection which may represent a small seroma versus abscess. BONES: Multilevel degenerative changes predominantly on the basis of facet arthropathy. OTHER: No other significant finding. IMPRESSION: Status post herniorrhaphy noting a 1.8 x 2.0 x 1.0 cm fluid collection within the extra abdominal soft tissues. This is nonspecific and may represent a small seroma ; however, a developing abscess is not excluded. No evidence of clinically suspected bowel obstruction. Other chronic and incidental findings as detailed above. TECHNICAL DOCUMENTATION: JOB ID: [id number] Quality ID # [id number]: Final reports with documentation of one or more dose reduction techniques (e.g., Au tomated exposure control, adjustment of the mA and/or kV according to patient size, use of iterative reconstruction technique) 2010 [employer]- All Rights Reserved Reading location - IP/workstation name: [email or web address]
[2017-09-02 14:57] LABS: APPEARANCE,URINE CLEAR; BILIRUBIN,URINE NEGATIVE (NEGATIVE); COLOR,URINE YELLOW; GLUCOSE, URINE NEGATIVE (NEGATIVE); KETONES,URINE NEGATIVE (NEGATIVE); LEUKOCYTE ESTERASE,URINE TRACE (NEGATIVE); NITRITE,URINE NEGATIVE (NEGATIVE); PROTEIN,URINE NEGATIVE (NEGATIVE); URINE SPECIFIC GRAVITY 1.039; UROBILINOGEN,URINE NEGATIVE mg/dL (<2.0)
--- NOTE | 2017-09-02 15:13 | EKG REPORT ---
SEVERITY:- NORMAL ECG - SINUS RHYTHM : Confirmed by: Alie Christine MD 02-Sep-2017 15:12:43
[2017-09-02 15:15] VITALS: BP 134/72
[2017-09-02] MEDS ORDERED: ONDANSETRON ODT 4 MG TAB (6 TAB/ER DISP) PO PRN (16:07)
--- NOTE | 2017-09-02 23:55 | PDOC CONSULTATION ---
Consultation Consult Date: 09/02/17 Consult reason:: Abdominal pain, nausea, vomiting, recent surgery. History of Present Illness Admission Date/PCP: FAVIAN SILVER MD History of Present Illness: ARPIT ROMERO is a 72 year old female seen in consultation at the request of the emergency department. This patient recently underwent laparoscopic ventral hernia repair approximately 2 weeks ago. The patient was doing well until this morning when she developed abdominal pain, nausea, and vomiting. The patient also reports dysuria and a burning sensation in the right groin. The patient reports that her pain is colicky and intermittent. It is situated in her mid abdomen and epigastrium. It does not radiate. Nothing makes the pain better but nothing makes it worse. Patient has experienced several episodes of vomiting. This began after eating breakfast today. The patient denies fevers, chills, chest pain, headache, fatigue, dizziness, blurry vision, melena, hematochezia, diarrhea, or constipation. Past Medical History Cardiac Medical History: Reports: Hypertension Denies: Congestive Heart Failure, Coronary Artery Disease - cardiac cath 2012 , Myocardial Infarction Pulmonary Medical History: Reports: Chronic Obstructive Pulmonary Disease (COPD ) - left lower lobectomy Denies: Asthma, Bronchitis, Pneumonia, Tuberculosis Neurological Medical History: Denies: Seizures Renal/ Medical History: Denies: End Stage Renal Disease GI Medical History: Denies: Cirrhosis, Gastroesophageal Reflux Disease Musculoskeltal Medical History: Reports: Arthritis Psychiatric Medical History: Denies: Bipolar Disorder, Depression Hematology: Denies: Anemia, Bleeding Tendencies Past Surgical History Past Surgical History: Reports: Cardiac Catheterization, Cholecystectomy, Other - Recent laparoscopic ventral hernia repair Social History Lives with: Family Smoking Status: Never Smoker Hx Recreational Drug Use: No Hx Prescription Drug Abuse: No Family History Family History: Reviewed & Not Pertinent Parental Family History Reviewed: Yes Children Family History Reviewed: Yes Sibling(s) Family History Reviewed.: Yes Medication/Allergy Home Medications: Aspirin [Aspirin 81 mg Chewable Tablet] 81 mg PO QAM 12/02/16 Diltiazem HCl [Cartia Xt] 120 mg PO QAM 12/02/16 Hydrochlorothiazide [Hydrodiuril 25 mg Tablet] 25 mg PO QAM 12/02/16 Esomeprazole Magnesium [Nexium] 40 mg PO DAILY #90 capsule. 12/03/16 Alprazolam 1 tab PO TID 08/11/17 Glucosam/Chondr/Collagn/Hyalur [Glucosamine & Chondroitin Cap] 1 cap PO DAILY Albuterol Sulfate [Proair HFA] 1 - 2 puff IH Q4 PRN 08/19/17 Ondansetron [Zofran Odt 4 mg Tablet] 1 - 2 tab PO Q4H PRN #15 tab.rapdis Allergies/Adverse Reactions: No Known Allergies Allergy (Verified 09/02/17 10:55) Review of Systems Constitutional: ABSENT: chills, fatigue, fever(s), headache(s) Eyes: ABSENT: visual disturbances Ears: ABSENT: hearing changes Nose, Mouth, and Throat: ABSENT: sore throat Cardiovascular: PRESENT: chest pain Respiratory: ABSENT: cough, dyspnea Gastrointestinal: PRESENT: abdominal pain, bloating, nausea, vomiting. ABSENT: hematemesis, hematochezia, melena Genitourinary: PRESENT: difficulty urinating, dysuria Musculoskeletal: PRESENT: back pain Integumentary: ABSENT: pruritus, rash Neurological: ABSENT: confusion, convulsions, dizziness Psychiatric: ABSENT: anxiety, depression Endocrine: ABSENT: cold intolerance, heat intolerance Hematologic/Lymphatic: ABSENT: easy bleeding, easy bruising Physical Exam Vital Signs: Temp Pulse Resp BP Pulse Ox 98.2 F 88 16 134/72 H 92 09/02/17 15:13 09/02/17 15:13 09/02/17 15:13 09/02/17 15:13 09/02/17 15:13 Intake & Output 09/01/17 09/02/17 09/03/17 06:59 06:59 06:59 Intake Total 1000 Balance 1000 Weight 77.7 kg General appearance: PRESENT: no acute distress, other - Overweight Head exam: PRESENT: atraumatic, normocephalic Eye exam: PRESENT: EOMI, PERRLA. ABSENT: scleral icterus Mouth exam: PRESENT: neck supple Neck exam: ABSENT: lymphadenopathy, meningismus, tenderness, thyromegaly, tracheal deviation Respiratory exam: PRESENT: clear to auscultation partha, unlabored. ABSENT: chest wall tenderness, rhonchi, wheezes Cardiovascular exam: PRESENT: RRR Pulses: PRESENT: normal radial pulses Vascular exam: PRESENT: normal capillary refill. ABSENT: pallor GI/Abdominal exam: PRESENT: soft. ABSENT: distended, guarding, Mayfield's sign, tenderness Rectal exam: PRESENT: deferred Extremities exam: ABSENT: clubbing Musculoskeletal exam: ABSENT: deformity Neurological exam: PRESENT: alert, awake, oriented to person, oriented to place , oriented to time, oriented to situation, CN II-XII grossly intact. ABSENT: motor sensory deficit Psychiatric exam: ABSENT: agitated, anxious, depressed Focused psych exam: ABSENT: delusional Skin exam: ABSENT: cyanosis, erythema, jaundice, pallor Results Laboratory Results: 09/02/17 12:00 09/02/17 12:00 09/02/17 09/02/17 09/02/17 12:00 12:00 14:34 WBC 12.2 H RBC 4.41 Hgb 13.7 Hct 39.6 MCV 90 MCH 31.1 MCHC 34.7 RDW 13.3 Plt Count 321 Seg Neutrophils % 92.4 H Lymphocytes % 5.4 L Monocytes % 2.1 L Eosinophils % 0.0 Basophils % 0.1 Absolute Neutrophils 11.3 H Absolute Lymphocytes 0.7 Absolute Monocytes 0.3 Absolute Eosinophils 0.0 Absolute Basophils 0.0 Sodium 142.1 Potassium 3.4 L Chloride 98 Carbon Dioxide 29 Anion Gap 15 BUN 18 Creatinine 0.75 Est GFR ( Amer) > 60 Est GFR (Non-Af Amer) > 60 Glucose 137 H Calcium 9.6 Total Bilirubin 0.8 AST 22 ALT 27 Alkaline Phosphatase 83 Total Protein 7.9 Albumin 4.5 Lipase 64.3 Urine Color YELLOW Urine Appearance CLEAR Urine pH 6.0 Ur Specific [place] 1.039 Urine Protein NEGATIVE Urine Glucose (UA) NEGATIVE Urine Ketones NEGATIVE Urine Blood SMALL H Urine Nitrite NEGATIVE Ur Leukocyte Esterase TRACE H Urine WBC (Auto) 1 Urine RBC (Auto) 1 09/02/17 09/02/17 12:00 15:07 CK-MB (CK-2) 0.62 Troponin I 0.029 0.027 Impressions: Abdomen/Pelvis CT 09/02/17 11:36 IMPRESSION: Status post herniorrhaphy noting a 1.8 x 2.0 x 1.0 cm fluid collection within the extra abdominal soft tissues. This is nonspecific and may represent a small seroma ; however, a developing abscess is not excluded. No evidence of clinically suspected bowel obstruction. Other chronic and incidental findings as detailed above. Assessment & Plan - Diagnosis (1) Acute gastroenteritis Is this a current diagnosis for this admission?: Yes - Plan Summary Plan Summary: This is a 72-year-old female with nausea, vomiting, and abdominal pain. The patient recently underwent laparoscopic ventral hernia repair. The patient has undergone CT scanning today. I have personally reviewed these images. The patient has small bilateral inguinal hernias, but has no evidence of bowel obstruction or recurrent ventral hernia. The patient complains of dysuria. Her symptoms may be related to a urinary tract infection, gastroenteritis, or other etiology. I do not see evidence of a bowel obstruction or other surgical problem. Further workup and disposition will be per the emergency room physician. She is to follow-up in [place] [facility] as previously scheduled.
== END 2017-09-02 16:51 | disposition home or self-care (01) ==
LOC: ER 10:44
DX: K52.9 Noninfective gastroenteritis and colitis, unspecified (principal); R11.2 Nausea with vomiting, unspecified; R19.8 Other specified symptoms and signs involving the digestive system and abdomen; F41.9 Anxiety disorder, unspecified; I10 Essential (primary) hypertension; J44.9 Chronic obstructive pulmonary disease, unspecified; Z98.890 Other specified postprocedural states; Z79.82 Long term (current) use of aspirin; Z79.899 Other long term (current) drug therapy
CPT/HCPCS: 93005; 99284; 96361; 96374; 96375; 36415; 82553; 83690; 85025; 80076; 80048; 81001; 84484; 74177; 93010; A9270; J2270; J0780; J7030; S0119

== ENCOUNTER → 2019-02-15 | Outpatient (CLI) | payer MEDICARE, BC ==
--- NOTE | 2019-02-15 14:51 | RADIOLOGY REPORT (SQ) ---
EXAM DESCRIPTION: CT ABD/PELVIS WITH IV ORAL COMPLETED DATE/TIME: 02/15/2019 2:14 pm REASON FOR STUDY: R10.84 GENERALIZED ABDOMINAL PAIN R10.84 GENERALIZED ABDOMINAL PAIN COMPARISON: 09/02/2017, 12/03/2016, and 08/22/2015. TECHNIQUE: CT scan of the abdomen and pelvis performed using helical scanning technique with dynamic intravenous contrast injection. No oral contrast. Images reviewed with lung, soft tissue, and bone windows. Reconstructed coronal and sagittal MPR images reviewed. Delayed images for evaluation of the urinary system also acquired. All images stored on PACS. All CT scanners at this facility use dose modulation, iterative reconstruction, and/or weight based d osing when appropriate to reduce radiation dose to as low as reasonably achievable (ALARA). [facility]: Dose Right [facility]: CareDose [facility]: Dose Right [facility]: Teradose 4D [facility]: Synata CONTRAST TYPE AND DOSE: contrast/concentration: Isovue 350.00 mg/ml; Total Contrast Delivered: 98.0 ml; Total Saline Delivered: 72.0 ml RENAL FUNCTION: Creatinine 0.6. RADIATION DOSE: CT Rad equipment meets quality standard of care and radiation dose reduction techniq ues were employed. CTDIvol: 11.9 - 11.9 mGy. DLP: 1229 mGy-cm.. LIMITATIONS: None. FINDINGS: LOWER CHEST: No significant findings. No nodules or infiltrates. LIVER: Normal size. Stable diffuse fatty infiltration with a few small hepatic cysts. No dilated du cts. SPLEEN: Normal size. No focal lesions. PANCREAS: Stable decreased attenuation in the pancreatic head. No masses. No significant calcificati ons. No adjacent inflammation or peripancreatic fluid collections. Pancreatic duct not dilated. GALLBLADDER: Surgically absent. ADRENAL GLANDS: No significant masses or asymmetry. RIGHT KIDNEY AND URETER: No solid masses. No significant calcifications. No hydronephrosis or hyd roureter. LEFT KIDNEY AND URETER: No solid masses. No significant calcifications. No hydronephrosis or hydr oureter. AORTA AND VESSELS: No aneurysm. No dissection. Renal arteries, SMA, celiac without stenosis. RETROPERITONEUM: No retroperitoneal adenopathy, hemorrhage or masses. BOWEL AND PERITONEAL CAVITY: No masses or inflammatory changes. No free fluid or peritoneal masses. APPENDIX: Not visualized. PELVIS: No mass. No free fluid. Normal bladder. ABDOMINAL WALL: No masses. There is a small anterior abdominal wall hernia located to the right of m idline, anterior to the liver, midway between the umbilicus and xiphoid. This is a new finding. Bes t demonstrated on axial series 2, image 28, and sagittal series 602, image 38. Contains mesenteric f at with no involvement of bowel. Width of the hernia defect approximately 8 mm. BONES: No significant or acute findings. OTHER: No other significant finding. IMPRESSION: 1. NEW SMALL ANTERIOR ABDOMINAL WALL HERNIA DESCRIBED, CONTAINING FAT ONLY. 2. DIFFUSE FATTY INFILTRATION OF THE LIVER WITH SMALL HEPATIC CYSTS, UNCHANGED. 3. STABLE CHRONIC DECREASED ATTENUATION OF THE PANCREATIC HEAD. 4. NO OTHER SIGNIFICANT OR ACUTE FINDING IN THE ABDOMEN OR PELVIS ON CT SCAN WITH IV CONTRAST. TECHNICAL DOCUMENTATION: JOB ID: [id number] Quality ID # [id number]: Final reports with documentation of one or more dose reduction techniques (e.g., Au tomated exposure control, adjustment of the mA and/or kV according to patient size, use of iterative reconstruction technique) 2010 [employer]- All Rights Reserved Reading location - IP/workstation name: [email or web address]
== END ==
LOC: RAD 13:28
PROVIDERS: ATTEND Surgery
DX: R10.84 Generalized abdominal pain (principal); K43.9 Ventral hernia without obstruction or gangrene; K76.0 Fatty (change of) liver, not elsewhere classified
CPT/HCPCS: 74177; 82565

== ENCOUNTER → 2019-09-27 | Outpatient (CLI) | payer MEDICARE, BC ==
--- NOTE | 2019-09-27 18:05 | RADIOLOGY REPORT (SQ) ---
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 Multiple dizz y spells yesterday. Nausea, vertigo, off balance, double vision and on focused vision with problems with depth perception. Dizzy spells for 3 weeks, lasting hold a. Head has felt funny for 1 year. H istory of hypertension. COMPARISON: None. TECHNIQUE: Multiplanar imaging includes non-contrasted T1, T2, FLAIR, and diffusion with ADC map seq uences. Images stored on PACS. LIMITATIONS: None. FINDINGS: ANATOMY: No anomalies. Normal vascular flow voids. Pituitary fossa normal. CSF SPACES: Normal in size and contour. No hemorrhage. CEREBRUM: Sulci and gyri normal in size and contour. Tiny punctate hyperintense T2 signal lesions in the deep white matter on the right on FLAIR imaging. No evidence of hemorrhage, mass, or extraaxial fluid collection. POSTERIOR FOSSA: No signal alteration. No hemorrhage. No edema, masses or mass effect. Internal servando tory canals, cerebello-pontine angles, mastoids normal. DIFFUSION IMAGING: Negative for acute or sub-acute infarction. ORBITS: No masses. Globes normal. PARANASAL SINUSES: No fluid levels. Mucosa normal. OTHER: No other significant finding. IMPRESSION: 1. No acute intracranial mass, mass effect, ischemia, or evidence of intracranial hemorrhage. 2. Minimal chronic small vessel ischemic change. EVIDENCE OF ACUTE STROKE: NO. TECHNICAL DOCUMENTATION: JOB ID: [id number] 2010 [employer]- All Rights Reserved Reading location - IP/workstation name: [email or web address]
== END ==
LOC: RAD 15:13
PROVIDERS: ATTEND Internal Medicine
DX: G46.4 Cerebellar stroke syndrome (principal)
CPT/HCPCS: 70551